=== PATIENT | female | born 1960 | race African-American/Black ===

== ENCOUNTER 2016-06-21 17:46 | Emergency (ER) | payer BC, MEDICAID, OTHER ==
[~2016-06-21] VITALS: Ht 160 cm; Wt 101.2 kg
[~2016-06-21 17:46] MED LIST: ALBUTEROL2.5 MG/3 M INH; BACTRIM DS TAB1 EAC1 ORAL; ERYTHROMYCIN3.5 GM RIGHT EYE; PREDNISONE10 MG ORAL; VICODIN 5-5001 EACH ORAL; ZITHROMAX250 MG ORAL
[2016-06-21 18:04] VITALS: BP 138/84
--- NOTE | 2016-06-21 18:05 | Emergency Room Report ---
History of Present Illness General Chief Complaint: Asthma Source: Patient Present Illness HPI Patient is a 55-year-old female presented after having increased cough and difficulty breathing. Patient prior history of asthma. The patient had recently lost her inhaler. The patient states last albuterol use was yesterday. Patient had previously been on prednisone. Patient reports having some slight increase in the productive nature cough. Allergies: Coded Allergies: No Known Allergies (Unverified , 12/01/12) Patient History Past Medical History: see triage record Last Menstrual Period: years Reviewed Nursing Documentation: PMH: Agreed, PSxH: Agreed Nursing Documentation-PMH Past Medical History: No History, Except For Hx Asthma: Yes Hx Cancer: Yes - Thyroid CA (thyroid removed) Review of Systems All Other Systems: negative except mentioned in HPI Physical Exam Vital Signs Date Time Temp Pulse Resp B/P Pulse Ox O2 Delivery O2 Flow Rate FiO2 06/21/16 17:53 97.7 98 14 136/80 99 Room Air General Appearance: well appearing, no apparent distress, alert, GCS 15, non- toxic Head: normocephalic, atraumatic ENT: hearing grossly normal, normal voice Neck: full range of motion, supple Respiratory: no respiratory distress, speaking full sentences, wheezing Cardiovascular #1: normal peripheral pulses, regular rate, rhythm, no edema Gastrointestinal: normal inspection, normal bowel sounds, non tender, soft, no mass Musculoskeletal: normal inspection, back normal, digits/nails normal, no calf tenderness Neurologic: normal inspection, alert, oriented x3, normal gait Psychiatric: mood/affect normal Skin: no rash Medical Decision Making Diagnostic Impression: Primary Impression: Asthma attack ER Course Patient presented for cough. Differential diagnosis included but was not limited to bronchitis, pneumonia, pulmonary embolism, pericarditis, asthma, foreign body. Patient's benign exam and does not appear to require any further imaging or laboratory testing at this time . The patient was given breathing treatment. Repeat lung exam showed improved breath sounds. Because the patient's productive cough she been prescribed antibiotics. The patient is advised to follow up with primary care doctor in 1-2 days. Patient is advised to return if any worsening condition or if any changes in status that are concerning. Last Vital Signs Date Time Temp Pulse Resp B/P Pulse Ox O2 Delivery O2 Flow Rate FiO2 06/21/16 17:53 97.7 98 14 136/80 99 Room Air Status: improved Disposition: HOME, SELF-CARE Condition: Stable Scripts Prednisone* (PREDNISONE*) 20 Mg Tablet 40 MG ORAL DAILY, #10 TAB Prov: Cezar Singh 06/21/16 Albuterol Sulfate* (ALBUTEROL SULFATE MDI*) 8.5 Gm Hfa.aer.ad 2 PUFF INH Q4H Y for cough/wheezing, #1 EA 0 Refills Prov: Cezar Singh 06/21/16 Azithromycin* (ZITHROMAX*) 250 Mg Tablet 250 MG ORAL DAILY, #6 TAB 0 Refills Take two tables once daily for 1 day, then one tablet once daily for 4 days. Prov: Cezar Singh 06/21/16 Cezar Singh Jun 21, 2016 18:05
[2016-06-21] MEDS ORDERED: DuoNeb 0.5-3(2.5)mg/3ml neb HHN ONE (18:15)
[2016-06-21] MEDS ORDERED: ZITHROMAX250 MG ORAL (18:25)
[2016-06-21] MEDS ORDERED: ALBUTEROL SULF8.5 GM INH (18:25)
[2016-06-21] MEDS ORDERED: PREDNISONE20 MG ORAL (18:25)
[2016-06-21 18:56] VITALS: BP 138/84
== END 2016-06-21 18:57 | disposition home or self-care (01) ==
LOC: EMR 18:45
DX: J45.901 Unspecified asthma with (acute) exacerbation (principal); Z85.850 Personal history of malignant neoplasm of thyroid
CPT/HCPCS: 94640; 94664; 99284; J7620

== ENCOUNTER 2016-10-04 19:17 | Emergency (ER) | payer MEDICAID ==
[~2016-10-04] VITALS: Ht 160 cm; Wt 102.1 kg
[~2016-10-04 19:17] MED LIST changes: +ALBUTEROL SULF8.5 GM INH; +PREDNISONE20 MG ORAL
[2016-10-04] MEDS ORDERED: HYDROCHLOROTHIA25 MG ORAL (19:34)
[2016-10-04 19:39] VITALS: BP 162/83
--- NOTE | 2016-10-04 19:43 | Emergency Room Report ---
History of Present Illness General Chief Complaint: Asthma Source: Patient Present Illness HPI 56 YO Female presents to the ED c/o wheezing and dry cough x 2 days. pt. has hx of asthma, pt. states albuterol inhaler treatments are not helping at home. pt. denies N/V/F/C ,rashes, swelling of the lips or tongue, pt. denies pain with breathing, pt. denies recent illness, productive sputum or ill-contacts. Denies CP, Palpitations, LOC, AMS, dizziness, Changes in Vision, Sensation, paresthesias, or a sudden severe headache. Allergies: Coded Allergies: No Known Allergies (Unverified , 12/01/12) Patient History Past Medical History: see triage record Past Surgical History: none Pertinent Family History: none Last Menstrual Period: n/a Now: No Immunizations: UTD Reviewed Nursing Documentation: PMH: Agreed, PSxH: Agreed Nursing Documentation-PMH Past Medical History: No History, Except For Hx Hypertension: Yes Hx Asthma: Yes Hx Cancer: Yes - Thyroid CA (thyroid removed) Review of Systems All Other Systems: negative except mentioned in HPI Physical Exam Vital Signs Date Time Temp Pulse Resp B/P Pulse Ox O2 Delivery O2 Flow Rate FiO2 10/04/16 19:29 98.2 88 16 162/83 99 Room Air Sp02 EP Interpretation: reviewed, normal General Appearance: no apparent distress, alert, GCS 15, non-toxic Head: normocephalic, atraumatic Eyes: bilateral eye PERRL, bilateral eye normal inspection ENT: hearing grossly normal, normal pharynx, no angioedema, normal voice Neck: full range of motion, supple/symm/no masses Respiratory: lungs clear, normal breath sounds, speaking full sentences, wheezing Cardiovascular #1: regular rate, rhythm, no edema, normal capillary refill Musculoskeletal: back normal, gait/station normal, normal range of motion, non- tender Neurologic: alert, oriented x3, responsive, motor strength/tone normal, sensory intact, speech normal Psychiatric: judgement/insight normal, memory normal, mood/affect normal Skin: normal color, no rash, warm/dry, well hydrated Lymphatic: no adenopathy Medical Decision Making PA Attestation Dr. cordon is my supervising Physician whom patient management has been discussed with. Diagnostic Impression: Primary Impression: Asthma exacerbation ER Course 56 YO Female presents to the ED c/o wheezing and dry cough x 2 days. pt. has hx of asthma, pt. states albuterol inhaler treatments are not helping at home. pt. denies N/V/F/C ,rashes, swelling of the lips or tongue, pt. denies pain with breathing, pt. denies recent illness, productive sputum or ill-contacts. Denies CP, Palpitations, LOC, AMS, dizziness, Changes in Vision, Sensation, paresthesias, or a sudden severe headache. Ddx considered but are not limited to asthma exacerbation, CHF, URI, pneumonia, PE, strep pharyngitis, meningitis. Vital signs: Pt. is afebrile, VS are WNL H&PE are most consistent with URI, asthma exacerbation ORDERS: none required at this time, the diagnosis is clinical ED INTERVENTIONS: -Albuterol nebulized treatment. -Prednisone PO - re-examination post nebulized treatment lungs are CTA bilaterally. DISCHARGE: At this time pt. is stable for d/c to home. Will provide printed patient care instructions, and any necessary prescriptions. Care plan and follow up instructions have been discussed with the patient prior to discharge. Last Vital Signs Date Time Temp Pulse Resp B/P Pulse Ox O2 Delivery O2 Flow Rate FiO2 10/04/16 19:39 88 16 Room Air 10/04/16 19:39 98.3 162/83 99 Disposition: HOME, SELF-CARE Condition: Stable Scripts Albuterol Sulfate* (ALBUTEROL SULFATE MDI*) 8.5 Gm Hfa.aer.ad 2 PUFF INH Q3H, #1 INH 0 Refills Prov: Savannah Betancourt 10/04/16 Prednisone* (PREDNISONE*) 20 Mg Tablet 40 MG ORAL DAILY for 5 Days, #10 TAB Prov: Savannah Betancourt 10/04/16 Additional Instructions: Take medications as directed. Follow up with a Primary Care Provider in 3-5 days, even if your symptoms have resolved. --Please review list of primary care clinics, if you do not already have a primary care provider Return sooner to ED if new symptoms occur, or current symptoms become worse. - Please note that this Emergency Department Report was dictated using ZendyPlacecommercial coordinator technology software, occasionally this can lead to erroneous entry secondary to interpretation by the dictation equipment. Savannah Betancourt Oct 04, 2016 19:43
[2016-10-04] MEDS: Albuterol ud Inhalation HHN SCH ×2 (19:49→19:50)
[2016-10-04] MEDS ORDERED: ALBUTEROL SULF8.5 GM INH (20:23)
[2016-10-04] MEDS ORDERED: PREDNISONE20 MG ORAL (20:23)
[2016-10-04] MEDS ORDERED: PredniSONE 20mg tab ORAL ONE (20:30)
[2016-10-04 20:35] VITALS: BP 155/91
== END 2016-10-04 20:35 | disposition home or self-care (01) ==
LOC: EMR 20:11
DX: J45.901 Unspecified asthma with (acute) exacerbation (principal); I10 Essential (primary) hypertension; Z85.850 Personal history of malignant neoplasm of thyroid
CPT/HCPCS: 94640; 94664; 99284

== ENCOUNTER 2016-12-18 11:32 | Emergency (ER) | payer MEDICAID ==
[~2016-12-18] VITALS: Ht 160 cm; Wt 98.9 kg
[~2016-12-18 11:32] MED LIST changes: +HYDROCHLOROTHIA25 MG ORAL
[2016-12-18] MEDS ORDERED: Albuterol ud Inhalation HHN ONE ×2 (12:15→12:45)
--- NOTE | 2016-12-18 12:15 | Emergency Room Report ---
History of Present Illness General Chief Complaint: Upper Respiratory Illness Source: Significant Other Present Illness HPI 56-year-old female presents to the emergency department complaining of cough, wheezing and increased sinus allergy symptoms x2 days. Patient reports has a history of asthma in addition to intermittent allergies. Patient states onset of her symptoms was after helping to clean to a friend's house that was very mallory. Patient denies fevers, chills, rash, recent illness or ill contacts. Patient denies swelling of the lower extremities, productive sputum, or unilateral facial tenderness. Denies CP, Palpitations, LOC, AMS, dizziness, Changes in Vision, Sensation, paresthesias, or a sudden severe headache. Allergies: Coded Allergies: No Known Allergies (Unverified , 12/01/12) Patient History Past Medical History: see triage record Past Surgical History: none Pertinent Family History: none Last Menstrual Period: 3 years Now: No Immunizations: UTD Reviewed Nursing Documentation: PMH: Agreed, PSxH: Agreed Nursing Documentation-PMH Past Medical History: No History, Except For Hx Hypertension: Yes Hx Asthma: Yes Hx Cancer: Yes - Thyroid CA Review of Systems All Other Systems: negative except mentioned in HPI Physical Exam Vital Signs Date Time Temp Pulse Resp B/P (MAP) Pulse Ox O2 Delivery O2 Flow Rate FiO2 12/18/16 11:36 98.1 92 18 142/112 98 Room Air Sp02 EP Interpretation: reviewed, normal General Appearance: no apparent distress, alert, GCS 15, non-toxic Head: normocephalic, atraumatic Eyes: bilateral eye normal inspection, bilateral eye PERRL ENT: hearing grossly normal, normal voice Neck: full range of motion, supple/symm/no masses Respiratory: chest non-tender, speaking full sentences, wheezing - bilaterally Cardiovascular #1: regular rate, rhythm, no edema, normal capillary refill Musculoskeletal: back normal, gait/station normal, normal range of motion, non- tender Neurologic: alert, oriented x3, responsive, motor strength/tone normal, sensory intact, speech normal Psychiatric: judgement/insight normal, memory normal, mood/affect normal Skin: normal color, no rash, warm/dry, well hydrated Lymphatic: no adenopathy Medical Decision Making PA Attestation Dr. Singh is my supervising Physician whom patient management has been discussed with. Diagnostic Impression: Primary Impression: Asthma with acute exacerbation Qualified Codes: J45.21 - Mild intermittent asthma with (acute) exacerbation ER Course Pt. presents to the ED c/o cough and wheezing x 2 days, Pt. has a hx of asthma, and inhaler treatments at home are not helping. Ddx considered but are not limited to asthma exacerbation, CHF, URI, pneumonia, PE, strep pharyngitis, meningitis. Vital signs: Pt. is afebrile, VS are WNL H&PE are most consistent with acute asthma exacerbation. ORDERS: none required at this time, the diagnosis is clinical ED INTERVENTIONS: - Albuterol nebulized treatment x 2 - re-examination post nebulized treatment lungs are CTA bilaterally. DISCHARGE: At this time pt. is stable for d/c to home. Will provide printed patient care instructions, and any necessary prescriptions. Care plan and follow up instructions have been discussed with the patient prior to discharge. Last Vital Signs Date Time Temp Pulse Resp B/P (MAP) Pulse Ox O2 Delivery O2 Flow Rate FiO2 12/18/16 11:46 92 18 Room Air 12/18/16 11:36 98.1 142/112 98 Disposition: HOME, SELF-CARE Condition: Stable Scripts Albuterol Sulfate* (ALBUTEROL SULFATE MDI*) 8.5 Gm Hfa.aer.ad 2 PUFF INH Q3H, #1 INH 2 Refills Prov: Savannah Betancourt 12/18/16 Cetirizine Hcl* (ZYRTEC*) 10 Mg Tablet 10 MG ORAL DAILY, #30 TAB 0 Refills Prov: Savannah Betancourt 12/18/16 Patient Instructions: Asthma, Adult, [id number] Additional Instructions: Take medications as directed. Follow up with a Primary Care Provider in 3-5 days, even if your symptoms have resolved. --Please review list of primary care clinics, if you do not already have a primary care provider Return sooner to ED if new symptoms occur, or current symptoms become worse. - Please note that this Emergency Department Report was dictated using Presto Servicesstock shipper technology software, occasionally this can lead to erroneous entry secondary to interpretation by the dictation equipment. Savannah Betancourt Dec 18, 2016 12:15
[2016-12-18] MEDS ORDERED: ALBUTEROL SULF8.5 GM INH (13:02)
[2016-12-18] MEDS ORDERED: ZYRTEC10 MG ORAL (13:02)
[2016-12-18 13:20] VITALS: BP 110/78
== END 2016-12-18 13:20 | disposition home or self-care (01) ==
LOC: EMR 12:40
DX: J45.901 Unspecified asthma with (acute) exacerbation (principal); Z85.850 Personal history of malignant neoplasm of thyroid
CPT/HCPCS: 94640; 94664; 99284

== ENCOUNTER 2017-05-05 15:07 | Emergency (ER) | payer MEDICAID ==
[~2017-05-05] VITALS: Ht 160 cm; Wt 99.3 kg
[~2017-05-05 15:07] MED LIST changes: +ZYRTEC10 MG ORAL
--- NOTE | 2017-05-05 15:26 | Emergency Room Report ---
History of Present Illness General Chief Complaint: Medication Refill Source: Patient Present Illness HPI [id number] walk-in for request for ventolin refill History of asthma Non-smoker No other asthma meds daily Denies recent URI symptoms, SOB, chest pain, wheezing, fever/chills Feels well otherwise Allergies: Coded Allergies: No Known Allergies (Unverified , 12/01/12) Patient History Past Medical History: asthma Past Surgical History: none Pertinent Family History: none Social History: Denies: smoking, alcohol use, drug use Now: No Immunizations: UTD Reviewed Nursing Documentation: PMH: Agreed, PSxH: Agreed Nursing Documentation-PMH Past Medical History: No History, Except For Hx Hypertension: Yes Hx Asthma: Yes Hx Cancer: Yes - Thyroid CA Review of Systems All Other Systems: negative except mentioned in HPI Physical Exam Vital Signs Date Time Temp Pulse Resp B/P (MAP) Pulse Ox O2 Delivery O2 Flow Rate FiO2 05/05/17 15:18 98.1 98 18 140/87 98 Room Air Sp02 EP Interpretation: reviewed, normal General Appearance: normal inspection, well appearing, no apparent distress, alert, GCS 15, non-toxic Head: normocephalic, atraumatic Eyes: bilateral eye PERRL, bilateral eye EOMI ENT: normal ENT inspection, hearing grossly normal, normal pharynx, no angioedema, normal voice, TMs + canals normal, uvula midline, moist mucus membranes Neck: normal inspection, full range of motion, supple, thyroid normal, no meningismus, no bony tend Respiratory: normal inspection, lungs clear, normal breath sounds, no rhonchi, no respiratory distress, no retraction, no accessory muscle use, no wheezing, speaking full sentences Cardiovascular #1: regular rate, rhythm, no edema, no JVD, normal capillary refill Gastrointestinal: normal inspection, normal bowel sounds, non tender, soft, no mass, no peritonitis, non-distended, no guarding, no hernia, no pulsatile mass Genitourinary: no CVA tenderness Musculoskeletal: normal inspection, back normal, normal range of motion, no calf tenderness, pelvis stable, Aram's Sign negative Neurologic: normal inspection, alert, oriented x3, responsive, market risk manager III-XII nml as tested, motor strength/tone normal, cerebellar normal, normal gait, speech normal Psychiatric: normal inspection, judgement/insight normal, mood/affect normal, no suicidal/homicidal ideation, no delusions Skin: normal inspection, normal color, no rash Lymphatic: normal inspection, no adenopathy Medical Decision Making Diagnostic Impression: Primary Impression: Encounter for medication refill ER Course VSS, Afebrile No wheezing No access muscle use, shortness of breath, retractions Ventolin refilled ER course: Patient has remained stable during ED stay. Disposition: Patient is to be discharged to home. Prescriptions given are ventolin Patient is instructed to follow up with their primary care doctor within 5 days. Strict return precautions discussed with patient such as fever, chills, worsening/severe pain, nausea, vomiting, which may indicate severe illness. Patient verbalizes understanding and agrees with plan. Please note that this Emergency Department Report was dictated using VM Discoverydriving school instructor technology software, occasionally this can lead to erroneous entry secondary to interpretation by the dictation equipment Last Vital Signs Date Time Temp Pulse Resp B/P (MAP) Pulse Ox O2 Delivery O2 Flow Rate FiO2 05/05/17 15:18 98.1 98 18 140/87 98 Room Air Status: improved Disposition: HOME, SELF-CARE Scripts Albuterol Sulfate (VENTOLIN HFA) 18 Gm Hfa.aer.ad 1 PUFF INH EVERY 6 HOURS for cough, SOB, #18 GM 0 Refills Prov: MINH DRAKE M.D. 05/05/17 MINH DRAKE M.D. May 05, 2017 15:26
[2017-05-05 15:29] VITALS: BP 137/85
[2017-05-05] MEDS ORDERED: VENTOLIN HFA18 GM INH (15:43)
[2017-05-05 15:54] VITALS: BP 137/85
== END 2017-05-05 15:54 | disposition home or self-care (01) ==
LOC: EMR 15:30
DX: Z76.0 Encounter for issue of repeat prescription (principal); J45.909 Unspecified asthma, uncomplicated; I10 Essential (primary) hypertension; Z85.850 Personal history of malignant neoplasm of thyroid
CPT/HCPCS: 99282

== ENCOUNTER 2017-12-05 20:23 | Emergency (ER) | payer MEDICAID, OTHER ==
[~2017-12-05] VITALS: Ht 160 cm; Wt 102.1 kg
[~2017-12-05 20:23] MED LIST changes: +VENTOLIN HFA18 GM INH
[2017-12-05] MEDS ORDERED: AMLODIPINE BESYL5 MG ORAL (20:37)
[2017-12-05] MEDS ORDERED: SYNTHROID100 MCG ORAL (20:37)
[2017-12-05 20:41] VITALS: BP 118/78
--- NOTE | 2017-12-05 20:43 | Emergency Room Report ---
History of Present Illness General Chief Complaint: Asthma Source: Patient Present Illness HPI Patient is a 57-year-old female presented after increased difficulty breathing. Patient gradual onset of symptoms of the past 3 days. Patient reports having increased the mucous production. She denies any fever. She denies any recent ill contacts. The patient was noted to have not been taking any oral steroids. She had been taking albuterol inhaler. She had prior history of hypothyroidism. Allergies: Coded Allergies: No Known Allergies (Unverified , 12/01/12) Patient History Past Medical History: see triage record Last Menstrual Period: n/a Reviewed Nursing Documentation: PMH: Agreed; PSxH: Agreed Nursing Documentation-PMH Past Medical History: No History, Except For Hx Hypertension: Yes Hx Asthma: Yes Hx Cancer: Yes - Thyroid CA Review of Systems All Other Systems: negative except mentioned in HPI Physical Exam Vital Signs Date Time Temp Pulse Resp B/P (MAP) Pulse Ox O2 Delivery O2 Flow Rate FiO2 12/05/17 20:32 98.4 98 16 118/78 98 Room Air 98.4 Sp02 EP Interpretation: reviewed, normal General Appearance: normal inspection, well appearing, no apparent distress, alert, GCS 15, obese Head: atraumatic ENT: normal ENT inspection, hearing grossly normal, normal voice Neck: normal inspection, full range of motion, supple, no bony tend Respiratory: normal inspection, no respiratory distress, no retraction, wheezing Cardiovascular #1: regular rate, rhythm, no edema Gastrointestinal: normal inspection, normal bowel sounds, non tender, soft, no guarding, no hernia Genitourinary: no CVA tenderness Musculoskeletal: normal inspection, back normal, normal range of motion Neurologic: normal inspection, alert, oriented x3, responsive, hand scudder III-XII nml as tested, speech normal Psychiatric: normal inspection, judgement/insight normal, mood/affect normal Skin: normal inspection, normal color, no rash Medical Decision Making Diagnostic Impression: Primary Impression: Asthma attack ER Course The patient presented for cough and difficulty breathing. Difficult differential diagnosis included bronchitis, pneumonia, asthma, foreign body, pertussis among others. The patient was given breathing treatments with with improvement in respiratory status. A repeat exam showed diminished wheezing and good air movement.. Patient was advised followup with primary care physician for reevaluation one to 2 days. Patient was to return for increased productive cough, hemoptysis, increased difficulty breathing or other concerns Last Vital Signs Date Time Temp Pulse Resp B/P (MAP) Pulse Ox O2 Delivery O2 Flow Rate FiO2 12/05/17 20:32 98.4 98 16 118/78 98 Room Air 98.4 Status: improved Disposition: HOME, SELF-CARE Condition: Stable Scripts Albuterol Sulfate* (ALBUTEROL SULFATE MDI*) 8.5 Gm Hfa.aer.ad 2 PUFF INH Q4H, #1 INH 0 Refills Prov: Cezar Singh MD 12/05/17 Prednisone* (PREDNISONE*) 20 Mg Tablet 40 MG ORAL DAILY, #10 TAB Prov: Cezar Singh MD 12/05/17 Cezar Singh MD Dec 05, 2017 20:43
[2017-12-05] MEDS ORDERED: Albuterol/Ipratropium 3ml neb HHN ONE (20:45)
[2017-12-05] MEDS ORDERED: Albuterol ud Inhalation HHN ONE (21:00)
[2017-12-05] MEDS ORDERED: PREDNISONE20 MG ORAL (21:52)
[2017-12-05] MEDS ORDERED: ALBUTEROL SULF8.5 GM INH (21:52)
[2017-12-05 22:00] VITALS: BP 145/73
== END 2017-12-05 22:00 | disposition home or self-care (01) ==
LOC: EMR 21:55
DX: J45.909 Unspecified asthma, uncomplicated (principal); I10 Essential (primary) hypertension; Z85.850 Personal history of malignant neoplasm of thyroid
CPT/HCPCS: 94640; 94664; 99284; J7512; J7620

== ENCOUNTER 2018-04-11 21:02 | Emergency (ER) | payer OTHER ==
[~2018-04-11] VITALS: Ht 160 cm; Wt 104.3 kg
[~2018-04-11 21:02] MED LIST changes: +AMLODIPINE BESYL5 MG ORAL; +SYNTHROID100 MCG ORAL
[2018-04-11 21:15] VITALS: BP 131/69
--- NOTE | 2018-04-11 21:20 | NUR ---
ED Nurse Note: Patient walk in c/o asthma attack and wheezing for 2x days. Patient states inhaler is not working. pt resporations is even. pt is satting at 100%. pt is alert and oriented times 4.
--- NOTE | 2018-04-11 21:21 | Emergency Room Report ---
History of Present Illness General Chief Complaint: Asthma Source: Patient Present Illness HPI . Patient is a 57-year-old female who presented after increased difficulty breathing. Patient had prior history of asthma. She was noted to have increased difficulty breathing.Patient had onset of symptoms earlier in the day. Patient had prior history of asthma. She had taken prednisone which she had previously prescribed. She reports having a mild episode at this time. She denies any smoking history. She states that this may have been triggered by her eating some food which she she may have had a reaction to. She reports having some sick contacts. Allergies: Coded Allergies: No Known Allergies (Unverified , 12/01/12) Patient History Past Medical History: see triage record Last Menstrual Period: XIAO Now: No Para: 2 Reviewed Nursing Documentation: PMH: Agreed; PSxH: Agreed Nursing Documentation-PMH Past Medical History: No History, Except For Hx Hypertension: Yes Hx Asthma: Yes Hx Cancer: Yes - Thyroid CA Review of Systems All Other Systems: negative except mentioned in HPI Physical Exam Vital Signs Date Time Temp Pulse Resp B/P (MAP) Pulse Ox O2 Delivery O2 Flow Rate FiO2 04/11/18 21:13 98.2 95 18 131/69 96 Room Air Sp02 EP Interpretation: reviewed, normal General Appearance: normal inspection, well appearing, no apparent distress, alert, GCS 15 Head: atraumatic ENT: normal ENT inspection, hearing grossly normal, normal voice Neck: normal inspection, full range of motion, supple, no bony tend Respiratory: normal inspection, lungs clear, normal breath sounds, no respiratory distress, no retraction, no wheezing Cardiovascular #1: regular rate, rhythm, no edema Gastrointestinal: normal inspection, normal bowel sounds, non tender, soft, no guarding, no hernia Genitourinary: no CVA tenderness Musculoskeletal: normal inspection, back normal, normal range of motion Neurologic: normal inspection, alert, responsive, speech normal Psychiatric: normal inspection, judgement/insight normal, mood/affect normal Skin: normal inspection, normal color, no rash Medical Decision Making Diagnostic Impression: Primary Impression: Asthma attack ER Course Patient presented for cough. Differential diagnosis included but was not limited to bronchitis, pneumonia, pulmonary embolism, pericarditis, asthma, foreign body. Patient has a benign exam and does not appear to require any further imaging or laboratory testing at this time. Patient was given oral steroids in the emergency department.Patient was given a prescription for oral Steroids. Patient appears to have a viral upper respiratory illness and does not appear to require any antibiotics at this time. Patient was advised to continue sitter inhaler and to take her steroids as prescribed. The patient is advised to follow up with primary care doctor in 1-2 days. Patient is advised to return if any worsening condition or if any changes in status that are concerning. This report is dictated with [employer] adjunct mathematics instructor software which may occasionally lead to discrepancies related to use of this software. Last Vital Signs Date Time Temp Pulse Resp B/P (MAP) Pulse Ox O2 Delivery O2 Flow Rate FiO2 04/11/18 21:13 98.2 95 18 131/69 96 Room Air Status: improved Disposition: HOME, SELF-CARE Condition: Stable Scripts Prednisone* (PREDNISONE*) 20 Mg Tablet 40 MG ORAL DAILY, #10 TAB Prov: Cezar Singh MD 04/11/18 Albuterol Sulfate* (ALBUTEROL SULFATE MDI*) 8.5 Gm Hfa.aer.ad 2 PUFF INH Q3H, #1 INH 0 Refills Prov: Cezar Singh MD 04/11/18 Cezar Singh MD Apr 11, 2018 21:21
[2018-04-11] MEDS ORDERED: Albuterol/Ipratropium 3ml neb HHN ONE (21:30)
[2018-04-11] MEDS ORDERED: ALBUTEROL SULF8.5 GM INH (21:39)
[2018-04-11] MEDS ORDERED: PREDNISONE20 MG ORAL (21:39)
--- NOTE | 2018-04-11 22:07 | NUR ---
ED Nurse Note: PT is Dc per ERMD orders PT vital signs, status and condition reported to ERMD prior to Dc. pt is stable for Dc. pt is alert and orientated times 4. no skin trauma noted in ER. pt has left with all belongings as well as DC notes and presacriptions. pt is able to understand all DC info and teach back info. pt is instructed to follow up with main provider as soon as possible as well as report back to ER as soon as possible for reoccurance of symptoms. pt is able to ambulate with steady gait. ID band removed.
[2018-04-11 22:08] VITALS: BP 128/70
[2018-04-11 22:10] VITALS: BP 128/70
[2018-04-12] MEDS ORDERED: ALBUTEROL SULF8.5 GM INH (13:44)
[2018-04-12] MEDS ORDERED: PREDNISONE20 MG ORAL (13:44)
== END 2018-04-11 22:10 | disposition home or self-care (01) ==
LOC: EMR 21:27
DX: J45.909 Unspecified asthma, uncomplicated (principal); I10 Essential (primary) hypertension; Z85.850 Personal history of malignant neoplasm of thyroid
CPT/HCPCS: 94640; 94664; 99284; J7512; J7620

== ENCOUNTER 2018-04-21 02:09 | Emergency (ER) | payer OTHER ==
[~2018-04-21] VITALS: Ht 160 cm; Wt 102.5 kg
[2018-04-21 02:20] VITALS: BP 128/71
--- NOTE | 2018-04-21 02:20 | NUR ---
ED Nurse Note: Pt arrived ED from home. C/o SOB today and coughing. Pt is A/o x4, Vital signs stable at this time, waiting for orders.
[2018-04-21] MEDS ORDERED: Ipratropium 0.02% Inh Soln 2.5ml UD HHN ONE (03:00)
[2018-04-21] MEDS ORDERED: Albuterol ud Inhalation HHN ONE ×2 (03:00→03:30)
--- NOTE | 2018-04-21 03:00 | Emergency Room Report ---
History of Present Illness General Chief Complaint: Upper Respiratory Illness Source: Patient Present Illness HPI Patient presents with complaints of asthma exacerbation and cough over the past several days denies any fevers or chills denies any chest pain denies any vomiting or diarrhea Denies any recent travel Patient appears to have been here middle of March with similar episode Denies any pleurisy denies any rash Allergies: Coded Allergies: No Known Allergies (Unverified , 04/21/18) Patient History Past Medical History: see triage record Pertinent Family History: none Last Menstrual Period: 2016 Now: No Reviewed Nursing Documentation: PMH: Agreed; PSxH: Agreed Nursing Documentation-PM Past Medical History: No History, Except For Hx Hypertension: Yes Hx Asthma: Yes Hx Cancer: Yes - Thyroid CA Review of Systems All Other Systems: negative except mentioned in HPI Physical Exam Vital Signs Date Time Temp Pulse Resp B/P (MAP) Pulse Ox O2 Delivery O2 Flow Rate FiO2 04/21/18 02:10 98.2 106 22 129/72 97 Room Air Sp02 EP Interpretation: reviewed, normal General Appearance: well appearing, no apparent distress Head: normocephalic, atraumatic Eyes: bilateral eye PERRL, bilateral eye EOMI ENT: hearing grossly normal, normal pharynx, TMs + canals normal, uvula midline Neck: full range of motion, supple, no meningismus, no bony tend Respiratory: no respiratory distress, no retraction, no accessory muscle use, wheezing - Bilaterally Cardiovascular #1: normal peripheral pulses, regular rate, rhythm, no edema, no gallop, no JVD, no murmur Gastrointestinal: normal bowel sounds, non tender, soft, no mass, no organomegaly, non-distended, no guarding, no hernia, no pulsatile mass, no rebound Genitourinary: no CVA tenderness Musculoskeletal: normal inspection Neurologic: oriented x3, responsive, front man III-XII nml as tested, motor strength/ tone normal, sensory intact Psychiatric: mood/affect normal Skin: normal color, no rash, warm/dry, palpation normal Lymphatic: normal inspection, no adenopathy Medical Decision Making Diagnostic Impression: Primary Impression: Asthma attack ER Course Multiple differential considered including but not limited to pneumonia, URI, chemical irritation asthma exacerbation, After repeat treatment patient feels significantly improved lung sounds are better patient reports that she feels better and would like to go home We had a discussion regarding longer acting medications with asthma Patient has not had appropriate follow-up with her primary physician Given her long-standing history I did provide the patient with initial prescription and patient requires close outpatient follow-up Last Vital Signs Date Time Temp Pulse Resp B/P (MAP) Pulse Ox O2 Delivery O2 Flow Rate FiO2 04/21/18 02:20 102 22 Room Air 04/21/18 02:20 98.1 128/71 97 Status: improved Disposition: HOME, SELF-CARE Condition: Improved Scripts Dextromethorphan Hb/Doxylamine (ROBITUSSIN NIGHTTIME COUGH DM) 237 Ml Liquid 10 ML PO DAILY for 5 Days, ML Prov: Darlin Hebert DO 04/21/18 Montelukast Sodium* (SINGULAIR*) 10 Mg Tablet 10 MG ORAL DAILY for 14 Days, TAB Prov: Darlin Hebert DO 04/21/18 Referrals: NON PHYSICIAN (PCP) Additional Instructions: Patient is provided with the discharge instructions notified to follow up with primary doctor in the next 2-3 days otherwise return to the er with any worsening symptoms. Please note that this report is being documented using [employer] technology. This can lead to erroneous entry secondary to incorrect interpretation by the dictating instrument. Darlin Hebert DO Apr 21, 2018 03:00
[2018-04-21] MEDS ORDERED: ROBITUSSIN NIG237 ML PO (04:17)
[2018-04-21] MEDS ORDERED: SINGULAIR10 MG ORAL (04:17)
[2018-04-21 04:23] VITALS: BP 125/73
--- NOTE | 2018-04-21 04:23 | NUR ---
ED Nurse Note: Pt has seen by Dr. Hebert. All orders carried out, breathing treatment given by RT. Pt feels better at this time. D/c instruction and prescription given to Pt and verbalized understanding. ID band removed. Pt d/c from ED with steady gait with all her belongings .
== END 2018-04-21 04:23 | disposition home or self-care (01) ==
LOC: EMR 02:35
DX: J45.901 Unspecified asthma with (acute) exacerbation (principal); I10 Essential (primary) hypertension; Z85.850 Personal history of malignant neoplasm of thyroid
CPT/HCPCS: 94640; 99284

== ENCOUNTER 2018-08-01 13:09 | Emergency (ER) | payer OTHER ==
[~2018-08-01] VITALS: Ht 160 cm; Wt 104.3 kg
[~2018-08-01 13:09] MED LIST changes: +ROBITUSSIN NIG237 ML PO; +SINGULAIR10 MG ORAL
[2018-08-01] MEDS ORDERED: METFORMIN HCL500 M1 ORAL (13:21)
[2018-08-01 13:22] VITALS: BP 134/83
--- NOTE | 2018-08-01 13:46 | Emergency Room Report ---
History of Present Illness General Chief Complaint: Upper Respiratory Illness Source: Medical Record Present Illness HPI 57-year-old female with history of type 2 diabetes currently controlled with metformin and asthma controlled with albuterol inhaler here complaining of 3 days of productive cough with green phlegm. Patient reports that her symptoms started with sore throat, and congestion. Fever and chills, shortness of breath , palpitation, chest pain. Denies nausea vomiting, abdominal pain, diarrhea. denies Sick contact. Complains of increased wheezing and reports that she has been using her albuterol inhaler more often. She reports she has albuterol nebulizer at home however has not used. Denies recent travel and all other associated symptoms Allergies: Coded Allergies: No Known Allergies (Unverified , 04/21/18) Patient History Past Medical History: see triage record Past Surgical History: unable to obtain Pertinent Family History: unable to obtain Last Menstrual Period: yrs ago Now: No Reviewed Nursing Documentation: PMH: Agreed; PSxH: Agreed Nursing Documentation-PMH Past Medical History: No History, Except For Hx Hypertension: Yes Hx Asthma: Yes Hx Cancer: Yes - Thyroid CA Review of Systems All Other Systems: negative except mentioned in HPI Physical Exam Vital Signs Date Time Temp Pulse Resp B/P (MAP) Pulse Ox O2 Delivery O2 Flow Rate FiO2 08/01/18 13:18 98.4 105 18 95 Room Air 08/01/18 13:22 134/83 Sp02 EP Interpretation: reviewed, normal General Appearance: normal inspection, well appearing, no apparent distress Head: normocephalic, atraumatic Eyes: bilateral eye normal inspection, bilateral eye PERRL ENT: hearing grossly normal, no angioedema, normal voice, TMs + canals normal, pharyngeal erythema Respiratory: lungs clear, no rhonchi, wheezing - diffuse, other - no sob, no discomfort Cardiovascular #1: normal inspection, regular rate, rhythm, no edema, no murmur Gastrointestinal: normal inspection, non tender, soft Rectal: deferred Genitourinary: no CVA tenderness Musculoskeletal: normal inspection, back normal Neurologic: normal inspection, alert, oriented x3 Psychiatric: normal inspection, judgement/insight normal Skin: normal inspection, normal color, no rash, warm/dry Lymphatic: normal inspection, no adenopathy Medical Decision Making PA Attestation All my diagnosis and treatment plans were reviewed ad discussed with my supervising physician Dr. Urrutia Diagnostic Impression: Primary Impression: Pharyngitis, acute Additional Impression: Asthma ER Course 57-year-old female with history of type 2 diabetes currently controlled with metformin and asthma controlled with albuterol inhaler here complaining of 3 days of productive cough with green phlegm. Patient reports that her symptoms started with sore throat, and congestion. Fever and chills, shortness of breath , palpitation, chest pain. Denies nausea vomiting, abdominal pain, diarrhea. denies Sick contact. Complains of increased wheezing and reports that she has been using her albuterol inhaler more often. She reports she has albuterol nebulizer at home however has not used. Denies recent travel and all other associated symptoms Ddx considered but are not limited to: strep pharyngitis, URI, tonsilitis, peritonsillar absacess, influneza, asthma Vital signs: are WNL, pt. is afebrile H&PE are most consistent with: pharyngitis and asthma( due to DMII and Asthma status, to be tx with antibiotics) ORDERS: azithromycin, [facility] [place] ED INTERVENTIONS: None required at this time. DISCHARGE: At this time pt. is stable for d/c to home. Will provide printed patient care instructions, and any necessary prescriptions. Care plan and follow up instructions have been discussed with the patient prior to discharge. Follow-up with your primary care provider for management of asthma, steroids are contraindicated due to your disease status, Last Vital Signs Date Time Temp Pulse Resp B/P (MAP) Pulse Ox O2 Delivery O2 Flow Rate FiO2 08/01/18 13:22 98.4 104 18 134/83 95 Room Air Disposition: HOME, SELF-CARE Condition: Stable Scripts Benzonatate* (TESSALON PERLE*) 100 Mg Capsule 100 MG ORAL THREE TIMES A DAY, #21 PERLE Prov: Madelyn Saba 08/01/18 Azithromycin* (ZITHROMAX*) 250 Mg Tablet 250 MG ORAL DAILY, #6 TAB 0 Refills Take two tables once daily for 1 day, then one tablet once daily for 4 days. Prov: Madelyn Saba 08/01/18 Referrals: NOT CHOSEN IPA/MD,REFERRING (PCP) Patient Instructions: Asthma, Adult, [id number], Pharyngitis, [id number] Additional Instructions: Use your albuterol inhaler as well as your nebulizer treatment for symptom relief, steroids are not indicated since you are a diabetic and to follow-up with your primary care provider take above medication as directed. return to ER if Shortness of breath, chest pain Madelyn Saba August 01, 2018 13:46
[2018-08-01] MEDS ORDERED: TESSALON PERLE100 MG ORAL (13:47)
[2018-08-01] MEDS ORDERED: ZITHROMAX250 MG ORAL (13:47)
[2018-08-01 13:56] VITALS: BP 134/83
--- NOTE | 2018-08-01 13:57 | NUR ---
ER DISCHARGE NOTE: Patient is cleared to be discharged per ERMD, pt is aox4, on room air, with stable vital signs. pt was given dc and prescription instructions, pt was able to verbalize understanding, pt is able to ambulate with steady gait. pt took all belongings.
== END 2018-08-01 13:56 | disposition home or self-care (01) ==
LOC: EMR 13:40
DX: J02.9 Acute pharyngitis, unspecified (principal); J45.909 Unspecified asthma, uncomplicated; E11.9 Type 2 diabetes mellitus without complications; Z85.850 Personal history of malignant neoplasm of thyroid; Z79.84 Long term (current) use of oral hypoglycemic drugs
CPT/HCPCS: 99282

== ENCOUNTER 2019-04-26 23:18 | Emergency (ER) | payer OTHER ==
[~2019-04-26] VITALS: Ht 160 cm; Wt 102.1 kg
[~2019-04-26 23:18] MED LIST changes: +METFORMIN HCL500 M1 ORAL; +TESSALON PERLE100 MG ORAL
--- NOTE | 2019-04-26 23:33 | NUR ---
ED Nurse Note: pt presents to ED c/o cough and wheezing that started earlier today. pt states that she was cleaning today and thinks that dust may have triggered her symptoms. pt states that she used her albuterol inhaler and duoneb without relief of symptoms. pt describes "tightness" in her chest
[2019-04-26 23:34] VITALS: BP 144/78
[2019-04-26] MEDS ORDERED: ALBUTEROL SULF8.5 GM INH (23:42)
--- NOTE | 2019-04-26 23:42 | Emergency Room Report ---
History of Present Illness General Chief Complaint: Asthma Source: Patient Present Illness HPI 58-year-old female presents with acute shortness of breath patient reports that she started cleaning her windows the day before and then she started having shortness of breath due to the dust, alleviated with albuterol severity is moderate, constant patient presents to the ED to get ahead of the situation, she denies any chest pain no nausea no vomiting no fevers no chills patient presents for breathing treatments Allergies: Coded Allergies: No Known Allergies (Unverified , 04/21/18) Patient History Past Medical History: see triage record Reviewed Nursing Documentation: PMH: Agreed; PSxH: Agreed Nursing Documentation-PMH Hx Hypertension: Yes Hx Asthma: Yes Hx Cancer: Yes - Thyroid CA Review of Systems All Other Systems: negative except mentioned in HPI Physical Exam Vital Signs Date Time Temp Pulse Resp B/P (MAP) Pulse Ox O2 Delivery O2 Flow Rate FiO2 04/26/19 23:25 99.9 111 18 144/78 (100) 97 Room Air Sp02 EP Interpretation: reviewed, normal General Appearance: well appearing, no apparent distress, alert Head: normocephalic, atraumatic Eyes: bilateral eye PERRL, bilateral eye EOMI ENT: uvula midline, moist mucus membranes Neck: supple, thyroid normal, supple/symm/no masses Respiratory: no respiratory distress, no retraction, no accessory muscle use, wheezing - Mild Cardiovascular #1: normal peripheral pulses, no edema, no gallop, no murmur, tachycardia Gastrointestinal: non tender, soft, no guarding, no rebound Musculoskeletal: normal inspection Neurologic: alert, oriented x3 Psychiatric: mood/affect normal Skin: no rash, warm/dry Medical Decision Making Diagnostic Impression: Primary Impression: Asthma attack Qualified Codes: J45.21 - Mild intermittent asthma with (acute) exacerbation ER Course 58-year-old female presents with acute asthma exacerbation, patient is tachycardic secondary to utilizing albuterol before coming Will provide patient with breathing treatments, steroids Patient feels better Will discharge patient disposition home with return precautions Last Vital Signs Date Time Temp Pulse Resp B/P (MAP) Pulse Ox O2 Delivery O2 Flow Rate FiO2 04/26/19 23:34 111 18 Room Air 04/26/19 23:34 99.9 144/78 97 Disposition: HOME, SELF-CARE Condition: Stable Scripts Albuterol Sulfate* (ALBUTEROL SULFATE MDI*) 8.5 Gm Hfa.aer.ad 2 PUFF INH Q4H PRN for Shortness of Breath, #1 EA 0 Refills Prov: Abdi Mena MD 04/26/19 Referrals: [facility] Patient Instructions: Asthma, Adult Additional Instructions: The patient was provided with discharge instructions, notified to follow-up with a primary care doctor and or specialist in the next 24-48 hours, and to return to the ED if they have worsening of their symptoms. Please note that this report is being documented using [employer] technology. This can lead to erroneous entry secondary to incorrect interpretation by the dictating instrument. Abdi Mena MD Apr 26, 2019 23:42
[2019-04-26] MEDS ORDERED: Albuterol ud Inhalation HHN SCH (23:45)
[2019-04-26] MEDS ORDERED: Ipratropium 0.02% Inh Soln 2.5ml UD HHN SCH (23:45)
[2019-04-27] MEDS ORDERED: Dexamethasone 20mg/5ml ORAL ONE (00:15)
--- NOTE | 2019-04-27 00:20 | NUR ---
ED Nurse Note: ER pyxis ran out of decadron 2mg tablets, order was for 16 mg (8 tablets). Pyxis showed there was this medication available in SDU, ER CN and primary RN went to SDU but was unable to locate pt on SDU pyxis or enter pt as new pt. SDU CN over-rode med and pulled 8 tablets for pt and administered as ordered by DOUG
--- NOTE | 2019-04-27 00:40 | NUR ---
ED Nurse Note: pt verbalized that she is feeling better, states "I can breath easier now"
[2019-04-27 00:42] VITALS: BP 144/78
--- NOTE | 2019-04-27 00:42 | NUR ---
ER DISCHARGE NOTE: Patient cleared for DC by Dr. Mena. Patient verbalized understanding of DC and prescription instructions. all medical devices such as ID band removed. patient AxO x 4, ambulates with steady gait, pt left with all belongings
== END 2019-04-27 00:42 | disposition home or self-care (01) ==
LOC: EMR 04-27 00:42
DX: J45.21 Mild intermittent asthma with (acute) exacerbation (principal); I10 Essential (primary) hypertension; Z85.850 Personal history of malignant neoplasm of thyroid
CPT/HCPCS: 99284